=== PATIENT | male | born 2000 | race Caucasian/White ===

== ENCOUNTER 2019-05-06 18:33 | Emergency (ER) | payer BC ==
--- NOTE | 2019-05-06 19:03 | EDM.PDOC ---
ED HPI GENERAL MEDICAL PROBLEM - General Chief Complaint: General Stated Complaint: NUMBNESS ON L SIDE OF BODY Time Seen by Provider: 05/06/19 18:50 - History of Present Illness INITIAL COMMENTS - FREE TEXT/NARRATIVE: Pt presents c/o left shoulder dislocation that was reduced at home, left arm numbness, left face numbness, left leg numbness, has not improved over the last few hours. - Related Data Allergies Allergy/AdvReac Type Severity Reaction Status Date / Time amoxicillin Allergy Rash Verified 05/06/19 18:37 Home Meds: Home Meds Minocycline HCl 1 tab PO DAILY 05/06/19 [History] Past Medical History - Past Health History Medical/Surgical History: Denies Medical/Surgical History Social & Family History - Tobacco Use Smoking Status *Q: Former Smoker Used Tobacco, but Quit: Yes Month/Year Tobacco Last Used: 2013 ED ROS GENERAL - Review of Systems Review Of Systems: See Below Constitutional: Reports: No Symptoms HEENT: Reports: No Symptoms, Other (left face numbness) Respiratory: Reports: No Symptoms Cardiovascular: Reports: No Symptoms Endocrine: Reports: No Symptoms GI/Abdominal: Reports: No Symptoms : Reports: No Symptoms Musculoskeletal: Reports: Other (left arm numbness, left leg numbness) Neurological: Reports: Numbness Psychiatric: Reports: No Symptoms Hematologic/Lymphatic: Reports: No Symptoms Immunologic: Reports: No Symptoms ED EXAM, GENERAL - Physical Exam Exam: See Below Free Text/Narrative:: Pt with 3 year hx of left shoulder dislocation will reduce at home, in the past has had left arms numbness that resolves, numbness has moved to left side of face and left leg with no improvement. Exam Limited By: Altered Mental Status General Appearance: Alert, WD/WN, No Apparent Distress Eye Exam: Bilateral Eye: PERRL Ears: Normal External Exam Nose: Normal Inspection Throat/Mouth: Normal Inspection Head: Atraumatic, Normocephalic Neck: Normal Inspection, Supple, Non-Tender Respiratory/Chest: No Respiratory Distress, Lungs Clear, Normal Breath Sounds, No Accessory Muscle Use, Chest Non-Tender Cardiovascular: Normal Peripheral Pulses GI/Abdominal: Normal Bowel Sounds, Soft, Non-Tender, No Distention, No Abnormal Bruit Extremities: Other (slight weakness left hand able to ambulate) Neurological: Alert, Oriented Skin Exam: Warm, Dry Course - Vital Signs Last Recorded V/S: Last Vital Signs Temp 36.2 C 05/06/19 18:39 Pulse 81 05/06/19 18:39 Resp 16 05/06/19 18:39 BP 139/83 05/06/19 18:39 Pulse Ox 100 05/06/19 18:39 - Orders/Labs/Meds Orders: Active Orders 24 hr Category Date Time Status Shoulder Comp Lt [CR] Stat Exams 05/06/19 18:49 Taken Meds: Medications Discontinued Medications Generic Name Dose Route Start Last Admin Trade Name Pranav PRN Reason Stop Dose Admin Oxycodone/Acetaminophen 1 tab 05/06/19 20:08 05/06/19 20:17 Percocet 325-5 Mg PO 05/06/19 20:09 1 tab ONETIME ONE Administration Departure - Departure Time of Disposition: 21:07 Disposition: DC/Tfer to Acute Hospital 02 Clinical Impression: Numbness and tingling - Discharge Information Referrals: Hillray Bowles DO [Primary Care Provider] - Forms: ED Department Discharge, Interfacility Transfer EMTALA - My Orders Last 24 Hours: My Active Orders 05/06/19 18:49 Shoulder Comp Lt [CR] Stat - Assessment/Plan Last 24 Hours: My Active Orders 05/06/19 18:49 Shoulder Comp Lt [CR] Stat
[2019-05-06] MEDS ORDERED: Acetaminophen/oxyCODONE 325-5 MG Tab PO ONE (20:08)
--- NOTE | 2019-05-06 20:33 | CT ---
[id number] CT/CT Head WO IV EXAM: CT Head WO IV CLINICAL DATA: NUMBNESS, LEFT SIDE OF FACE, LEFT ARM LEFT LEG COMPARISON STUDY: None FINDINGS: No intracranial hemorrhage, extra-axial fluid collection, mass, or acute ischemia. No hydrocephalus. Paranasal sinuses and mastoid air cells are clear. IMPRESSION: Normal examination of the brain. Salvador Jacobs MD 05/06/193 Thank you for allowing us to participate in the care of your patient.
[2019-05-06 21:07] VITALS: BP 145/80; PULSE 78
--- NOTE | 2019-05-07 11:02 | CR ---
[id number] RAD/RAD Shoulder Left 2V Min Exam: RAD Shoulder Left 2V Min Indication:NUMBNESS Comparison: No prior imaging for comparison. Discussion: No significant osseous or soft tissue abnormality. Impression: Normal examination of the shoulder. Salvador Jacobs MD 05/07/19 [id number] Thank you for allowing us to participate in the care of your patient.
== END 2019-05-06 21:20 | disposition short-term general hospital (02) ==
LOC: VM.ED 18:33
DX: R20.0 Anesthesia of skin (principal); R20.2 Paresthesia of skin; Z87.891 Personal history of nicotine dependence; Z88.0 Allergy status to penicillin
CPT/HCPCS: 70450; 73030; 99285; A9270